=== PATIENT | female | born 1945 | race African-American/Black ===

== ENCOUNTER 2021-10-19 20:44 | Inpatient (IN) ==
[2021-10-19] MEDS ORDERED: SODIUM CHLORIDE 0.9% 1,000 ML IV STA (21:13)
[2021-10-19] MEDS ORDERED: ONDANSETRON 4 MG/2 ML VIAL IV ONE (21:13)
[2021-10-19] MEDS ORDERED: MORPHINE 2 MG/1 ML SYRINGE IV STA (21:43)
[2021-10-19] MEDS ORDERED: ALUM/MAG/SIMETH/LIDO VISC 1:1 30 ML BOTTLE PO STA (21:43)
[2021-10-19 21:47] LABS: Basophils % 0.3 % (0.0-0.8); Hemoglobin 9.7 GM/DL (12.0-16.0); Immature Granulocytes % 0.2 %; Immature Granulocytes Absolute 0.01 #; Lymphocytes # 0.9 10*3/uL (1.4-4.0); Lymphocytes % 13.4 % (21.3-54.2); Mean Corpuscular HGB Conc 29.4 GM/DL (32-36); Mean Corpuscular Volume 85.1 FL (87-102); Mean Platelet Volume 11.6 FL (9.6-12.0); Monocytes % 11.1 % (1.7-12.7); Platelet Count 176 T/CUMM (130-400); Red Blood Count 3.88 MC/CUMM (3.8-5.5); Red Cell Distribution Width 16.7 % (9.3-17.3); White Blood Count 6.5 T/CUMM (4-12)
[2021-10-19 21:49] LABS: Albumin 3.5 G/DL (3.4-5.0); Bilirubin,Total 0.5 MG/DL (0.20-1.00); Osmolality,Calculated 293.4 MOS/KG (273-304); Potassium 3.6 MMOL/L (3.5-5.1); Total Protein 7.3 G/DL (6.4-8.2)
[2021-10-19] MEDS ORDERED: ASPIRIN EC 325 MG TABLET PO STA (22:12)
[2021-10-19] MEDS ORDERED: NITROGLYCERIN SL 0.4 MG TABLET SL STA (22:12)
[2021-10-20] MEDS ORDERED: MORPHINE 2 MG/1 ML SYRINGE IV STA (00:31)
[2021-10-20] MEDS ORDERED: hydrALAZINE 20 MG/1 ML VIAL IV STA (00:45)
[2021-10-20] MEDS ORDERED: PIPERACILLIN/TAZOBACTAM 3,375 MG in SODIUM CHLORIDE 0.9% 100 ML IV STA (00:45)
[2021-10-20 00:59] LABS: Bacteria,Urine Few /HPF (Few); Bilirubin,Urine Negative (Negative); Blood, Urine Negative (Negative); Glucose,Urine (UA) Negative (Negative); Ketones,Urine Negative (Negative); Mucus,Urine Moderate /LPF (Occasional); Nitrite,Urine Positive (Negative); Protein,Urine 100 MG/DL; RBC,Urine 6 /HPF (0-4); Squamous Epithelial Cell,Urine Occasional /HPF (0-10); Urine Appearance CLEAR (Clear); Urine Color Yellow (Yellow); Urine Urobilinogen < 2.0 EU/DL (0.2-1.0)
[2021-10-20] MEDS ORDERED: ENOXAPARIN 30 MG/0.3 ML SYRINGE SUBCUT STA (01:09)
[2021-10-20] MEDS ORDERED: ENOXAPARIN 100 MG/ML SYRINGE SUBCUT STA (01:10)
[2021-10-20 01:16] LABS: Urine Specific Gravity > 1.035 (1.001-1.035)
[2021-10-20] MEDS ORDERED: PROMETHAZINE INJ 12.5 MG in SODIUM CHLORIDE 0.9% 50 ML IV PRN (01:47)
[2021-10-20] MEDS ORDERED: GLUCAGON 1 MG VIAL IM PRN (01:47)
[2021-10-20] MEDS ORDERED: ACETAMINOPHEN 325 MG TABLET PO PRN (01:47)
[2021-10-20] MEDS ORDERED: hydrALAZINE 20 MG/1 ML VIAL IV PRN (01:47)
[2021-10-20] MEDS ORDERED: MORPHINE 2 MG/1 ML SYRINGE IV PRN (01:47)
[2021-10-20] MEDS ORDERED: ONDANSETRON 4 MG/2 ML VIAL IV PRN (01:47)
[2021-10-20] MEDS ORDERED: LABETALOL 20 MG/4 ML SYRINGE IV STA (02:31)
[2021-10-20] MEDS: LACTATED RINGERS 1,000 ML IV SCH (02:48)
[2021-10-20 05:20] LABS: Bilirubin,Total 1.7 MG/DL (0.20-1.00); Calcium 9.4 MG/DL (8.5-10.1); Osmolality,Calculated 289.6 MOS/KG (273-304); Potassium 4.1 MMOL/L (3.5-5.1); Total Protein 6.6 G/DL (6.4-8.2)
[2021-10-20 05:34] LABS: Basophils % 0.2 % (0.0-0.8); Hematocrit 31.7 VOL% (35.7-47.0); Immature Granulocytes % 0.6 %; Immature Granulocytes Absolute 0.03 #; Lymphocytes # 0.6 10*3/uL (1.4-4.0); Lymphocytes % 12.1 % (21.3-54.2); Mean Platelet Volume 11.6 FL (9.6-12.0); Monocytes % 15.9 % (1.7-12.7); NRBC # 0.04 10*3/uL; Neutrophils % 71.2 % (38.7-73.9); Red Blood Count 3.73 MC/CUMM (3.8-5.5); Red Cell Distribution Width 16.7 % (9.3-17.3); White Blood Count 5.1 T/CUMM (4-12)
[2021-10-20 05:38] LABS: Hemoglobin 9.5 GM/DL (12.0-16.0); Platelet Count 113 T/CUMM (130-400)
[2021-10-20 05:46] LABS: Hypochromasia Slight; Lymphocytes 14 % (20-55); Microcytosis Slight; Segmented Neutrophils 72 % (50-85); Total Cells Counted 100
[2021-10-20] MEDS ORDERED: INFLUENZA VIRUS VACCINE 0.5 ML SYRINGE IM ONE (08:21)
[2021-10-20] MEDS: ASPIRIN EC 81 MG TABLET PO SCH (09:56)
[2021-10-20] MEDS: FAMOTIDINE INJ 40 MG in SODIUM CHLORIDE 0.9% 100 ML IV SCH ×2 (09:58→21:55)
[2021-10-20] MEDS: PIPERACILLIN/TAZOBACTAM 3,375 MG in SODIUM CHLORIDE 0.9% 100 ML IV SCH ×2 (11:14→17:50)
[2021-10-20] MEDS ORDERED: CETIRIZINE 10 MG TABLET PO PRN (19:57)
[2021-10-21] MEDS: PIPERACILLIN/TAZOBACTAM 3,375 MG in SODIUM CHLORIDE 0.9% 100 ML IV SCH ×3 (04:35→22:36)
[2021-10-21 05:06] LABS: Albumin 3.4 G/DL (3.4-5.0); Bilirubin,Direct 1.13 MG/DL (0.0-0.20); Bilirubin,Total 2.1 MG/DL (0.20-1.00)
[2021-10-21 05:09] LABS: Albumin 3.3 G/DL (3.4-5.0); Bilirubin,Total 2.1 MG/DL (0.20-1.00); Calcium 9.8 MG/DL (8.5-10.1); Osmolality,Calculated 291.7 MOS/KG (273-304); Potassium 4.2 MMOL/L (3.5-5.1); Total Protein 7.3 G/DL (6.4-8.2)
[2021-10-21 05:24] LABS: Basophils % 0.1 % (0.0-0.8); Hematocrit 34.8 VOL% (35.7-47.0); Hemoglobin 9.7 GM/DL (12.0-16.0); Immature Granulocytes % 0.6 %; Immature Granulocytes Absolute 0.05 #; Lymphocytes # 0.7 10*3/uL (1.4-4.0); Lymphocytes % 7.9 % (21.3-54.2); Mean Corpuscular HGB Conc 27.9 GM/DL (32-36); Mean Corpuscular Volume 85.7 FL (87-102); Monocytes % 12.8 % (1.7-12.7); NRBC # 0.34 10*3/uL; Neutrophils % 78.6 % (38.7-73.9); Red Blood Count 4.06 MC/CUMM (3.8-5.5); Red Cell Distribution Width 16.9 % (9.3-17.3)
[2021-10-21 05:27] LABS: Platelet Count 102 T/CUMM (130-400); White Blood Count 8.8 T/CUMM (4-12)
[2021-10-21 05:30] LABS: Hypochromasia 1+
[2021-10-21 05:31] LABS: Microcytosis 1+; Ovalocytes Few; Platelet Estimate Decreased; Tear Drop Cells Slight
[2021-10-21] MEDS ORDERED: ASCORBIC ACID 500 MG TABLET PO SCH (09:00)
[2021-10-21] MEDS ORDERED: NEBIVOLOL 10 MG TABLET PO SCH (09:00)
[2021-10-21 10:51] LABS: Hepatitis B Core IgM Quant 0.22 Index; Hepatitis B Surface Ag Quant < 0.10 Index; Hepatitis B Surface Ag Result Non-Reactive (NonReactive); Hepatitis C Virus Ab Quant 0.05 Index; Hepatitis C Virus Ab Result Non-Reactive (NonReactive)
[2021-10-21 12:35] LABS: INR 2.2; PT Patient Result 23.1 SECS (10.5-12.0)
[2021-10-21] MEDS: ASPIRIN EC 81 MG TABLET PO SCH (12:38)
[2021-10-21] MEDS: LACTATED RINGERS 1,000 ML IV SCH (13:46)
[2021-10-21] MEDS: FAMOTIDINE INJ 40 MG in SODIUM CHLORIDE 0.9% 100 ML IV SCH ×2 (15:31→22:02)
[2021-10-21] MEDS ORDERED: SODIUM CHLORIDE 0.9% 1,000 ML IV SCH ×3 (16:00→17:00)
[2021-10-21] MEDS ORDERED: DEXTROSE 5% NACL 0.45% 1,000 ML IV SCH (16:30)
[2021-10-21] MEDS ORDERED: metOLazone 2.5 MG TABLET PO ONE (16:40)
[2021-10-21] MEDS ORDERED: FAMOTIDINE 20 MG TABLET PO SCH (17:00)
[2021-10-21] MEDS ORDERED: cefTRIAXone 1,000 MG VIAL IM SCH (17:00)
[2021-10-21 17:09] LABS: ABG Base Excess -6.8 MMOL/L (-2.5-2.5); ABG HCO3 18.8 MMOL/L (20-26); ABG Oxygen Saturation 93.5 % (95-100); ABG PH 7.382 (7.35-7.45); ABG PO2 81.3 MM HG (80-95); ABG TCO2 15.8 MMOL/L (23-27)
[2021-10-21] MEDS ORDERED: oxyCODONE ER 10 MG TABLET PO SCH (21:00)
[2021-10-21] MEDS ORDERED: SODIUM CHLORIDE 0.9% 500 ML IV ONE (23:30)
[2021-10-21] MEDS ORDERED: NALOXONE 0.4 MG/ML VIAL ONE (23:59)
[2021-10-22] MEDS: DEXTROSE 50% 25 GM/50 ML SYRINGE IV PRN ×3 (00:57→07:36)
[2021-10-22] MEDS ORDERED: NOREPINEPHRINE 4 MG/4 ML VIAL IV ONE (01:00)
[2021-10-22] MEDS ORDERED: NOREPINEPHRINE 8 MG in SODIUM CHLORIDE 0.9% 242 ML IV PRN (01:10)
[2021-10-22] MEDS ORDERED: NALOXONE 0.4 MG/ML VIAL ONE (01:10)
[2021-10-22] MEDS ORDERED: NALOXONE 0.4 MG/ML VIAL IV ONE ×2 (01:13)
[2021-10-22] MEDS ORDERED: MIDAZOLAM 2 MG/2 ML VIAL ONE (01:21)
[2021-10-22] MEDS ORDERED: MIDAZOLAM 2 MG/2 ML VIAL IV ONE (01:28)
[2021-10-22 01:39] VITALS: BP 69/47
[2021-10-22] MEDS ORDERED: SODIUM BICARBONATE 50 MEQ/50 ML VIAL IV ONE ×6 (01:45→08:07)
[2021-10-22] MEDS ORDERED: EPINEPHrine 1 MG/10 ML SYRINGE ONE ×2 (01:45→08:13)
[2021-10-22 02:11] LABS: ABG Base Excess -19.1 MMOL/L (-2.5-2.5); ABG HCO3 10.1 MMOL/L (20-26); ABG Oxygen Saturation 98.2 % (95-100); ABG PCO2 44.5 MM HG (35-48); ABG TCO2 11.2 MMOL/L (23-27)
[2021-10-22 02:17] LABS: ABG PH 7.011 (7.35-7.45)
[2021-10-22 02:18] LABS: PT Patient Result 30.9 SECS (10.5-12.0); Partial Thromboplastin Time 30.3 SECS (23.8-32.1)
[2021-10-22] MEDS ORDERED: MIDAZOLAM 100 MG in SODIUM CHLORIDE 0.9% 80 ML IV PRN (02:22)
[2021-10-22 02:33] LABS: Basophils % 0.2 % (0.0-0.8); Eosinophils % 0.1 % (0.00-10.9); Immature Granulocytes % 3.6 %; Immature Granulocytes Absolute 0.46 #; Lymphocytes # 3.6 10*3/uL (1.4-4.0); Lymphocytes % 28.6 % (21.3-54.2); Mean Corpuscular HGB Conc 26.7 GM/DL (32-36); Mean Corpuscular Volume 90.1 FL (87-102); Monocytes % 13.2 % (1.7-12.7); NRBC # 2.77 10*3/uL; Neutrophils % 54.3 % (38.7-73.9); Platelet Count 66 T/CUMM (130-400); Red Blood Count 3.33 MC/CUMM (3.8-5.5); White Blood Count 12.6 T/CUMM (4-12)
[2021-10-22] MEDS ORDERED: BREO ELLIPTA INH PRN (02:33)
[2021-10-22 02:38] LABS: Band Neutrophils 4 % (0-10); Hypochromasia Slight; Lymphocytes 29 % (20-55); Nucleated Red Blood Cells 24 (0-5); Platelet Estimate Decreased; Segmented Neutrophils 59 % (50-85); Total Cells Counted 100
[2021-10-22 02:42] LABS: Albumin 2.5 G/DL (3.4-5.0); Calcium 8.7 MG/DL (8.5-10.1); Osmolality,Calculated 305.4 MOS/KG (273-304); Total Protein 5.8 G/DL (6.4-8.2)
[2021-10-22 03:10] LABS: Hepatitis B Core IgM Quant 0.22 Index; Hepatitis B Surface Ag Quant < 0.10 Index; Hepatitis B Surface Ag Result Non-Reactive (NonReactive); Hepatitis C Virus Ab Quant 0.04 Index; Hepatitis C Virus Ab Result Non-Reactive (NonReactive)
[2021-10-22] MEDS: NOREPINEPHRINE 16 MG in SODIUM CHLORIDE 0.9% 234 ML IV PRN ×2 (03:43→06:36)
[2021-10-22] MEDS: PIPERACILLIN/TAZOBACTAM 3,375 MG in SODIUM CHLORIDE 0.9% 100 ML IV SCH (03:55)
[2021-10-22 03:59] LABS: ABG Base Excess -18.3 MMOL/L (-2.5-2.5); ABG HCO3 10.5 MMOL/L (20-26); ABG PCO2 27.6 MM HG (35-48); ABG PO2 78.2 MM HG (80-95); ABG TCO2 9.2 MMOL/L (23-27)
[2021-10-22 04:03] LABS: ABG PH 7.144 (7.35-7.45)
[2021-10-22 04:08] LABS: Hepatitis B Surface Ab Result Reactive (NonReactive)
[2021-10-22] MEDS ORDERED: INSULIN REGULAR 10 UNIT, CALCIUM GLUCONATE 1,000 MG in DEXTROSE 10% 250 ML IV ONE (04:10)
[2021-10-22] MEDS ORDERED: DOBUTamine 500 MG/250 ML PREMIX IV PRN (04:11)
[2021-10-22] MEDS ORDERED: HYDROCORTISONE 100 MG VIAL IV SCH (04:30)
[2021-10-22 04:37] LABS: Basophils % 0.7 % (0.0-0.8); Eosinophils % 0.5 % (0.00-10.9); Hematocrit 29.6 VOL% (35.7-47.0); Immature Granulocytes % 10.2 %; Immature Granulocytes Absolute 0.43 #; Lymphocytes # 1.1 10*3/uL (1.4-4.0); Lymphocytes % 26.6 % (21.3-54.2); Mean Corpuscular HGB Conc 27.4 GM/DL (32-36); Mean Corpuscular Volume 90.2 FL (87-102); Monocytes % 7.4 % (1.7-12.7); NRBC # 2.58 10*3/uL; Neutrophils % 54.6 % (38.7-73.9); Platelet Count 58 T/CUMM (130-400); Red Blood Count 3.28 MC/CUMM (3.8-5.5); Red Cell Distribution Width 17.1 % (9.3-17.3); White Blood Count 4.2 T/CUMM (4-12)
[2021-10-22 04:38] LABS: Hemoglobin 8.1 GM/DL (12.0-16.0)
[2021-10-22 04:39] LABS: Calcium 8.2 MG/DL (8.5-10.1); Osmolality,Calculated 309.3 MOS/KG (273-304); Potassium 5.2 MMOL/L (3.5-5.1)
[2021-10-22 04:41] LABS: High Sensitive Troponin I* 909.3 ng/L (0-54)
[2021-10-22 04:43] LABS: Band Neutrophils 3 % (0-10); Burr Cells Slight; Hypochromasia Slight; Lymphocytes 37 % (20-55); Nucleated Red Blood Cells 82 (0-5); Ovalocytes Slight; Platelet Estimate Decreased; Segmented Neutrophils 55 % (50-85); Total Cells Counted 100
[2021-10-22 04:46] LABS: Albumin 2.3 G/DL (3.4-5.0); Bilirubin,Total 2.4 MG/DL (0.20-1.00); Calcium 8.2 MG/DL (8.5-10.1); Osmolality,Calculated 312.1 MOS/KG (273-304); Potassium 5.2 MMOL/L (3.5-5.1); Total Protein 5.1 G/DL (6.4-8.2)
[2021-10-22 04:53] LABS: Bilirubin,Urine Negative (Negative); Blood, Urine Large mg/dL (Negative); Glucose,Urine (UA) Negative (Negative); Ketones,Urine 5 mg/dL (Negative); Mucus,Urine Occasional /LPF (Occasional); Nitrite,Urine Negative (Negative); Protein,Urine 100 MG/DL; RBC,Urine 25 /HPF (0-4); Squamous Epithelial Cell,Urine Occasional /HPF (0-10); Urine Appearance CLOUDY (Clear); Urine Color Amber (Yellow); Urine Specific Gravity 1.033 (1.001-1.035); Urine Urobilinogen < 2.0 EU/DL (0.2-1.0)
[2021-10-22 07:58] LABS: ABG Base Excess -14.1 MMOL/L (-2.5-2.5); ABG HCO3 13.3 MMOL/L (20-26); ABG Oxygen Saturation 90.6 % (95-100); ABG PCO2 31.5 MM HG (35-48); ABG PH 7.214 (7.35-7.45); ABG PO2 82.8 MM HG (80-95); ABG TCO2 12.2 MMOL/L (23-27)
[2021-10-22] MEDS ORDERED: DOPamine 800 MG/250 ML PREMIX IV PRN (08:12)
[2021-10-22] MEDS ORDERED: SODIUM BICARBONATE 50 MEQ/50 ML SYRINGE IV ONE (08:13)
[2021-10-22] MEDS ORDERED: SODIUM BICARB INJ 150 MEQ in DEXTROSE 5% 1,000 ML IV SCH (08:30)
[2021-10-22] MEDS ORDERED: SODIUM ACETATE 150 MEQ in DEXTROSE 5% 1,000 ML IV SCH (08:30)
[2021-10-22] MEDS ORDERED: MAGNESIUM CHLORIDE 64 MG TABLET PO SCH (09:00)
[2021-10-22] MEDS ORDERED: FLUTICASONE 50 MCG NASAL SPRAY 16 GM BOTTLE BOTH NARES SCH (09:00)
[2021-10-22] MEDS ORDERED: allopurinoL 300 MG TABLET PO SCH (09:00)
[2021-10-22] MEDS ORDERED: POTASSIUM CHLORIDE 10 MEQ TABLET PO SCH (09:00)
[2021-10-22] MEDS ORDERED: predniSONE 10 MG TABLET PO SCH (09:00)
[2021-10-22] MEDS ORDERED: CALCIUM (CARBONATE) 500 MG TABLET PO SCH (09:00)
[2021-10-22] MEDS ORDERED: metOLazone 2.5 MG TABLET PO SCH (09:00)
[2021-10-22] MEDS ORDERED: LEFLUNOMIDE 10 MG TABLET PO SCH (09:00)
[2021-10-22] MEDS ORDERED: LATANOPROST 0.005% OPH SOLN 2.5 ML BOTTLE BOTH EYES SCH (21:00)
== END 2021-10-22 08:21 | disposition expired | DRG 871 ==
LOC: EDUNIT# → EDBD → N.ED 20:44 → N.EDINP 10-20 01:47 → SUATTDRO 10-20 01:47 → N.EDINP 10-20 05:14 → N.TELES 10-20 05:58 → N.CC 10-22 00:41
PROVIDERS: ADMIT Internal Medicine; ATTEND Family Medicine